=== PATIENT | male | born 1960 | race Caucasian/White ===

== ENCOUNTER 2019-07-25 07:06 | Emergency (ER) | payer OTHER ==
[~2019-07-25] VITALS: Wt 108.9 kg
[~2019-07-25 07:06] MED LIST: AMOXICILLIN500 MG PO; ANAPROX DS550 MG PO; BACTRIM DS 8001 TA1 PO; BENADRYL25 MG PO; BP MED; DIPROSONE0.05% TP; FLEXERIL10 MG PO; LIPITOR20 MG PO; LOPRESSOR25 MG PO; NORVASC10 MG PO; PREDNICOT20 MG PO; PREDNISONE10 MG PO; VICODIN 5/500 505 MG PO; VICODIN ES 7501 TAB PO
[2019-07-25 08:38] LABS: ACT PARTIAL THROMBO TIME 25.1 SECONDS (20.0-32.1); BASO # 0.1 10*3/uL (0.0-0.1); BASO % 1.1 % (0.0-1.0); EOS # 0.2 10*3/uL (0.0-0.4); EOS % 2.1 % (1.0-4.0); HEMATOCRIT 43.2 % (42.0-52.0); INTERNATIONAL NORM RATIO 0.9 (2.0-3.5); LYMPH # 2.7 10*3/uL (1.3-4.4); LYMPH % 26.8 % (27.0-41.0); MEAN CELL VOLUME 89.1 fl (80.0-94.0); MEAN CORPUSCULAR HGB 30.7 pg (27.0-31.0); MEAN CORPUSCULAR HGB CONC 34.5 g/dl (33.0-37.0); MEAN PLATELET VOLUME 10.8 fl (9.6-12.3); MONO # 1.1 10*3/uL (0.1-1.0); MONO % 10.8 % (3.0-9.0); NEUT # 5.9 10*3/uL (2.3-7.9); NEUT % 58.7 % (47.0-73.0); PLATELET COUNT AUTOMATED 272 10*3/uL (130-400); RED BLOOD COUNT 4.85 10*6/uL (4.50-5.90); RED CELL DISTRI WIDTH 14.2 % (0-14.5); WHITE BLOOD COUNT 10.1 10*3/uL (4.8-10.8)
[2019-07-25 08:44] LABS: ALBUMIN 3.6 gm/dl (3.1-4.5); ALKALINE PHOSPHATASE 47 U/L (45-117); BUN 14 mg/dl (7-24); CHLORIDE 107 mmol/L (98-107); CREATININE 0.75 mg/dL (0.70-1.30); LIPASE 510 U/L (73-393); POTASSIUM 3.3 mmol/L (3.5-5.1); SGOT/AST 17 IU/L (3-35); SGPT/ALT 34 U/L (12-78); SODIUM 138 mmol/L (136-145); TOTAL PROTEIN 7.4 gm/dL (6.4-8.2)
[2019-07-25 08:51] LABS: TROPONIN I < 0.015 ng/ml (<0.045)
[2019-07-25 09:23] VITALS: BP 151/91
[2019-07-25] MEDS ORDERED: NORVASC10 MG PO (09:43)
[2019-07-25] MEDS ORDERED: LOPRESSOR25 MG PO (09:43)
== END 2019-07-25 09:46 | disposition home or self-care (01) ==
LOC: ED 07:06
PROVIDERS: Emergency Medicine
DX: R04.0 Epistaxis (principal); I10 Essential (primary) hypertension; Z79.899 Other long term (current) drug therapy

== ENCOUNTER → 2021-01-07 | Outpatient (CLI) | payer OTHER | END | disposition home or self-care (01) | LOC: US 13:03 | PROVIDERS: ATTEND Urology | DX: N28.89 Other specified disorders of kidney and ureter (principal) ==

== ENCOUNTER → 2021-09-17 | Outpatient (CLI) | payer OTHER | END | disposition home or self-care (01) | LOC: RAD 12:54 | PROVIDERS: ATTEND Nurse Practitioner Family | DX: K12.2 Cellulitis and abscess of mouth (principal) ==

== ENCOUNTER 2022-06-04 08:52 | Emergency (ER) | payer OTHER ==
[~2022-06-04] VITALS: Ht 182.8 cm; Wt 129.3 kg
[2022-06-04 09:16] VITALS: BP 137/69
[2022-06-04] MEDS ORDERED: HYDROCODONE-AC1 EAC1 PO (11:58)
== END 2022-06-04 12:03 | disposition home or self-care (01) ==
LOC: ED 08:52
DX: S82.51XA Displaced fracture of medial malleolus of right tibia, initial encounter for closed fracture (principal); S82.61XA Displaced fracture of lateral malleolus of right fibula, initial encounter for closed fracture; M19.90 Unspecified osteoarthritis, unspecified site; I10 Essential (primary) hypertension; Z86.718 Personal history of other venous thrombosis and embolism; Z98.890 Other specified postprocedural states; Z90.49 Acquired absence of other specified parts of digestive tract; W01.0XXA Fall on same level from slipping, tripping and stumbling without subsequent striking against object, initial encounter; Y93.89 Activity, other specified; Y92.89 Other specified places as the place of occurrence of the external cause; Y99.8 Other external cause status

== ENCOUNTER → 2022-06-05 | Outpatient (CLI) | payer OTHER ==
[~2022-06-05] MED LIST changes: +HYDROCODONE-AC1 EAC1 PO
== END | disposition home or self-care (01) ==
LOC: US 10:00 → CT 15:00
PROVIDERS: ATTEND Podiatrist Foot & Ankle Surgery
DX: S82.891A Other fracture of right lower leg, initial encounter for closed fracture (principal); I70.213 Atherosclerosis of native arteries of extremities with intermittent claudication, bilateral legs; M79.89 Other specified soft tissue disorders; M67.873 Other specified disorders of tendon, right ankle and foot; X58.XXXA Exposure to other specified factors, initial encounter; Y93.89 Activity, other specified; Y92.89 Other specified places as the place of occurrence of the external cause; Y99.8 Other external cause status

== ENCOUNTER → 2022-06-18 | Day surgery (SDC) | payer OTHER ==
[2022-06-16 13:57] VITALS: BP 160/80
[~2022-06-18] VITALS: Ht 182.8 cm; Wt 127.0 kg
[~2022-06-18] MED LIST changes: +BENICAR HCT 401 EAC1 PO; +DOXYCYCLINE HY100 M3 PO; +TRAMADOL HCL50 MG PO; +XARELTO10 MG PO
[2022-06-18 07:02] VITALS: BP 166/79
[2022-06-18 10:36] VITALS: BP 138/61
[2022-06-18 10:51] VITALS: BP 137/54
[2022-06-18 11:06] VITALS: BP 134/56
[2022-06-18 11:21] VITALS: BP 142/72
== END | disposition home or self-care (01) ==
LOC: SDC 06-16 01:42
PROVIDERS: ATTEND Podiatrist Foot & Ankle Surgery
DX: S82.891A Other fracture of right lower leg, initial encounter for closed fracture (principal); I10 Essential (primary) hypertension; K21.9 Gastro-esophageal reflux disease without esophagitis; E11.9 Type 2 diabetes mellitus without complications; M19.90 Unspecified osteoarthritis, unspecified site; Z87.891 Personal history of nicotine dependence; E78.5 Hyperlipidemia, unspecified; X58.XXXA Exposure to other specified factors, initial encounter; Y93.89 Activity, other specified; Y92.89 Other specified places as the place of occurrence of the external cause; Y99.8 Other external cause status

== ENCOUNTER → 2024-06-08 | Outpatient (CLI) | payer OTHER ==
[~2024-06-08] MED LIST changes: +PERFLUTREN PROTEIN-A MICROSPHR 3 ML VIAL IV ONE
== END | disposition home or self-care (01) ==
LOC: CARD 00:21
PROVIDERS: ATTEND Internal Medicine Cardiovascular Disease
DX: I49.3 Ventricular premature depolarization (principal); R94.31 Abnormal electrocardiogram [ECG] [EKG]